=== PATIENT | female | born 1980 | race Caucasian/White ===

== ENCOUNTER 2021-11-16 09:47 | Outpatient (REF) | payer MEDICAID, SELFPAY ==
--- NOTE | 2021-11-16 09:30 | PAPFT_PTH ---
PATIENT: Tatyana Geronimo LOC: [facility] U#:[id number] AGE/SX: 41/F ROOM: RE11/16/[address]: ANABELA Reese : 1980 BED: DIS: 11/16/2021 SPEC #: [id number] RECD: 11/16/21 12:46 STATUS: ADRIENNE REStormy #: [id number] CLARY: 11/16/21 09:[address]: Azeb Dawson DEPT: [facility] Cytology RECD BY: Janeth Wilson ENTERED: 11/16/21 12:46 SP TYPE: PAPFT OTHR DR: Colette Hinkle MD, DC Tissues: 1 - CX/ENDOCX FOR PAP SMEARS Procedures: PAP THIN PREP/UVM Screening HPV DNA PROBE Comments: [id number]
== END 2021-11-16 09:48 | disposition home or self-care (01) ==
LOC: LBN 09:47
PROVIDERS: PCP Family Medicine; Visit Provider Nurse Practitioner Family
DX: Z12.4 Encounter for screening for malignant neoplasm of cervix (principal); Z11.51 Encounter for screening for human papillomavirus (HPV)
CPT/HCPCS: 88142; 87624

== ENCOUNTER → 2022-10-13 01:58 | Outpatient (CLI) | payer MEDICAID, SELFPAY ==
--- NOTE | 2022-10-13 07:30 | DI.US_ITS ---
Exam(s) US PELVIS TRANSVAGINAL EXAM: US PELVIS TRANSVAGINAL CLINICAL HISTORY: check IUD location,menorrhagia,z30.431,n92.0. TECHNIQUE: Transabdominal and transvaginal pelvic ultrasound was performed using standard protocol. COMPARISON: No priors for comparison. FINDINGS: UTERUS: Position: Anteverted. Size: 10.4 long by 5.4 AP by 6.0 transverse cm Endometrium: 0.7 cm. Normal for patient's menstrual status. No intrauterine device is identified. Myometrium: There is a 3.7 x 3.3 x 3.4 cm heterogeneous mass in the anterior for body and fundus. Th is is most likely a fibroid. Cervix: Unremarkable. OVARIES: Right: 4.3 x 3.7 x 2.4 cm Cyst or mass: No suspicious cystic or solid masses. Left: 3.4 x 2.3 x 2.5 cm Cyst or mass: No suspicious cystic or solid masses. DOPPLER: Color: Symmetric and uniform flow to both ovaries. CUL-DE-SAC: Free fluid: None. Other: None. IMPRESSION: 1. No IUD is identified sonographically. 2. Normal-appearing uterus with endometrial stripe within normal limits. Uterine fibroid. 3. Unremarkable bilateral ovaries. DATA REPOSITORY:
== END ==
PROVIDERS: PCP Family Medicine; Visit Provider Obstetrics & Gynecology
DX: N92.0 Excessive and frequent menstruation with regular cycle (principal); Z30.431 Encounter for routine checking of intrauterine contraceptive device; D25.9 Leiomyoma of uterus, unspecified
CPT/HCPCS: 76830; 76856

== ENCOUNTER 2023-02-08 16:22 | Outpatient (REF) | payer MEDICAID, SELFPAY ==
--- NOTE | 2023-02-08 15:45 | ENDOMET_PTH ---
PATIENT: Tatyana Geronimo LOC: [facility] U#:[id number] AGE/SX: 43/F ROOM: RE02/08/[address]: Dannielle Oneal DO : 1980 BED: DIS: 02/08/2023 SPEC #: [id number] RECD: 02/08/23 18:00 STATUS: ADRIENNE RE #: [id number] CLARY: 02/08/23 15:[address]: Dannielle Oneal DEPT: Surgical Specimen RECD BY: Janeth Wilson ENTERED: 02/08/23 18:01 SP TYPE: Endomet OTHR DR: Colette Hinkle MD, DC Tissues: 1 - ENDOMETRIUM BX/STEVEETTE Procedures: GROSS AND MICRO LEVEL 4 Comments: [id number]
== END 2023-02-08 16:23 | disposition home or self-care (01) ==
LOC: LBN 16:22
PROVIDERS: PCP Family Medicine; Visit Provider Obstetrics & Gynecology
DX: N93.8 Other specified abnormal uterine and vaginal bleeding (principal); N85.01 Benign endometrial hyperplasia
CPT/HCPCS: 88305

== ENCOUNTER 2023-04-29 02:21 | Outpatient (CLI) | payer MEDICAID, SELFPAY ==
[2023-04-29 14:48] LABS: HGB 14.1 g/dL (11.2-15.7); MCH 32.3 pg (27.0-33.0); MCHC 34.4 % (32.0-36.0); MCV 94 fL (80-95); MPV 9.6 fL (8.0-11.0); Platelet Count 251 10^3/uL (130-400); RBC 4.37 10^6/uL (3.93-5.22); RDW 11.9 % (11.7-14.6); RDW-SD 41.6 fL; WBC 6.63 10^3/uL (4.4-10.8)
[2023-04-29 15:55] LABS: Vitamin B12 345 pg/mL (193-986)
[2023-04-29 15:57] LABS: Folate > 20.0 ng/mL (8.6-20.0)
== END 2023-04-29 02:22 | disposition home or self-care (01) ==
LOC: LBO 02:21
PROVIDERS: Nurse Practitioner Family; PCP Family Medicine; Visit Provider Family Medicine
DX: R20.2 Paresthesia of skin (principal); R20.0 Anesthesia of skin
CPT/HCPCS: 36415; 85027; 82607; 82746

== ENCOUNTER 2023-05-20 00:40 | Outpatient (CLI) | payer MEDICAID, SELFPAY ==
--- NOTE | 2023-05-20 10:05 | DI.RAD_ITS ---
Exam(s) XR SHOULDER RT COMPLETE 2+V EXAM: XR SHOULDER RT COMPLETE 2+V CLINICAL HISTORY: thrown by bull 2019, SHOULDER PAIN, M25.519. TECHNIQUE: 2D digital imaging was performed. Five views. COMPARISON: No exams were available for comparison FINDINGS: BONES: No acute fracture is present in the shoulder visualized portions of the right ribs.. No bony destructive lesion is seen. JOINTS: No dislocation present. AC joint is not widened. Mild degenerative changes of the AC joint. Minimal degenerative changes at the glenohumeral joint. SOFT TISSUE: Normal. IMPRESSION: Mild degenerative changes. No acute abnormality. DATA REPOSITORY: RADIATION DOSE DELIVERED:
== END 2023-05-20 01:00 ==
LOC: DI 00:40
PROVIDERS: PCP Family Medicine; Visit Provider Family Medicine
DX: M25.511 Pain in right shoulder (principal)
CPT/HCPCS: 73030

== ENCOUNTER 2024-01-30 05:58 | Outpatient (CLI) | payer MEDICAID, SELFPAY ==
[2024-01-30 09:56] LABS: Abs Immature Grans 0.01 10^3/uL (0.0-0.06); Absolute Basophil Count 0.05 10^3/uL (0.0-0.2); Absolute Eosinophil Count 0.15 10^3/uL (0.0-0.7); Absolute Lymphocyte Count 2.04 10^3/uL (1.2-3.4); Absolute Monocyte Count 0.41 10^3/uL (0.1-0.8); Absolute Neutrophil Count 3.44 10^3/uL (1.2-6.7); Basophils % 0.8; Eosinophils % 2.5; HGB 15.2 g/dL (11.2-15.7); Immature Grans % 0.2; Lymphocytes % 33.4; MCH 31.9 pg (27.0-33.0); MCHC 33.8 % (32.0-36.0); MCV 95 fL (80-95); MPV 9.2 fL (8.0-11.0); Monocytes % 6.7; Neutrophils % 56.4; Platelet Count 287 10^3/uL (130-400); RBC 4.76 10^6/uL (3.93-5.22); RDW 11.8 % (11.7-14.6); RDW-SD 40.7 fL
== END 2024-01-30 05:59 | disposition home or self-care (01) ==
LOC: LBO 05:58
PROVIDERS: PCP Family Medicine; Visit Provider Obstetrics & Gynecology
DX: Z01.818 Encounter for other preprocedural examination (principal)
CPT/HCPCS: 36415; 86850; 86900; 86901; 85025

== ENCOUNTER 2024-02-01 06:20 | Inpatient (IN) | payer MEDICAID, SELFPAY ==
[2024-02-01] VITALS (18 sets, daily range): BP systolic 100–127; BP diastolic 52–76; PULSE 60–78; RESP 12–26; TEMP 36.5–36.8; O2SAT 96–100; BMI 29.7
--- NOTE | 2024-02-01 06:29 | W.ANESPRE ---
General Info Date of Service Date Performed: 02/01/24 Height: 5 ft 7.5 in Weight: 87.543 kg Body Mass Index (BMI): 29.7 Surgical Procedure: Operation Date: 02/01/24 07:40 Proposed Procedure Side Surgeon p Hysterectomy Vaginal Laparoscopic Assist, B/L Salpingectomy, possible BALDEMAR, Cysto Dannielle DO Jm Meds Allergies and Home Medications Allergies Allergy/AdvReac Type Severity Reaction Status Date / Time No Known Drug Allergies Allergy Other (See Verified 02/01/24 06:50 Comment) Home Medication Medication Instructions Recorded multivitamin (Daily Multi-Vitamin 1 ea PO DAILY 02/20/18 tablet) ascorbate calcium (vitamin C) 500 500 mg PO DAILY 11/16/21 mg tablet cholecalciferol (vitamin D3) 50 50 mcg PO DAILY 11/16/21 mcg (2,000 unit) capsule clotrimazole-betamethasone 1 1 applic topical BID 10 days #15 11/16/21 %-0.05 % topical cream grams lactobacillus combination no.9 4 PO 11/16/21 billion cell capsule (Adult 50 Plus Probiotic) omega-3 fatty acids 1,000 mg 1,000 mg PO DAILY 11/16/21 capsule norethindrone acetate 5 mg tablet 5 mg PO DAILY #60 tabs 07/15/23 (Aygestin) norethindrone acetate 5 mg tablet 10 mg (2 x 5 mg) PO BID #360 tabs 08/03/23 Current Visit Medications: Current Medications Generic Name Dose Route Start Last Admin Trade Name Freq PRN Reason Stop Dose Admin Ringer's Solution 1,000 mls @ 125 mls/hr 02/01/24 06:00 IV 02/01/24 23:59 INFUSION SHENA Cefazolin Sodium/Dextrose 2 gm in 50 mls @ 100 mls/hr 02/01/24 06:00 Ancef Duplex IVPB 02/01/24 23:59 PREOP SHENA IV Miscellaneous Supplies 1 each 02/01/24 06:00 Iv Access IV 02/01/24 23:59 DIRECTED SHENA Sodium Chloride 0 ml 02/01/24 06:00 Normal Saline Flush 10 Ml Syr IV 02/01/24 23:59 PRN PRN Sodium Chloride 0 ml 02/01/24 06:00 Normal Saline 10 Ml Vial IJ 02/01/24 23:59 DIRECTED PRN Sterile Water 0 ml 02/01/24 06:00 Water,Injection,Sterile 10 Ml Vial IJ 02/01/24 23:59 DIRECTED PRN PFSH Active Problems Active Problems: Problem Status Onset Code 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 Cubital tunnel syndrome on right G56.21 Cyst of bone of right shoulder M85.611 Contact dermatitis and eczema L25.9 Verruca vulgaris B07.8 Menorrhagia N92.0 Uterine fibroid D25.9 Paresthesia R20.2 Shoulder pain M25.519 Medical History Medical History IUD surveillance IUD expelled Tobacco Smoking/Tobacco Use Status: Former Tobacco Use Alcohol Alcohol Intake: current Alcohol intake frequency: holidays/special occasions only Substance Use Substance use type: does not use Vital Signs and Lab Results Lab Results Blood Type / Crossmatch: Patient ABO/Rh O Negative 01/30/24 Antibody Screen NEGATIVE 01/30/24 Complete Blood Count: White Blood Count 6.10 10^3/uL (4.4-10.8) 01/30/24 09:48 Red Blood Count 4.76 10^6/uL (3.93-5.22) 01/30/24 09:48 Hemoglobin 15.2 g/dL (11.2-15.7) 01/30/24 09:48 Hematocrit 45.0 % (36.0-46.0) 01/30/24 09:48 Platelet Count 287 10^3/uL (130-400) 01/30/24 09:48 Complete Metabolic Panel: No Data to Display Liver Function Panel: No Data to Display Coagulation Panel: No Data to Display Cardiac Panel: No Data to Display Arterial Blood Gas: No Data to Display Venous Blood Gas: No Data to Display Pancreas Panel: No Data to Display Thyroid Panel: No Data to Display Infectious Disease: No Data to Display Blood Cultures: No Data to Display Toxicology Panel: No Data to Display Panel: No Data to Display Anesthesia Assessment and Plan Anesthesia History Personal History: No History of Anesthesia Complications Family History: No Family History of Anesthesia Complications Exercise Tolerance Exercise Tolerance: Metabolic Equivalents>4 Pertinent Negatives Pertinent Negatives: No Symptoms of GERD, No Major Cardiovascular Symptoms or Complaints, No Major Pulmonary Symptoms or Complaints and No History of CVA/TIA Cardiac & Pulmonary Exam Cardiac Exam: Normal S1/S2 Heart Sounds Pulmonary Exam: Clear Bilateral Breath Sounds Implantable Cardiac Device Does patient have a Pacemaker or an ICD?: No Airway Exam Known Difficult Airway: No Mallampati Class: 2 Mouth Opening: Normal (> 3cm) Thyromental Distance: Greater than 3 cm Neck Range of Motion: Full ROM Neck Circumference: Normal Teeth Condition: Normal Dentition ASA Classification ASA Score: ASA 2 Emergency Case?: No NPO Status NPO Status: NPO Clears >2 hours, Solids >8 hours Status Status: Negative HCG Anesthesia Plan Resuscitation Status: Full Code Anesthesia Technique: General Anesthesia Airway Planned: Endotracheal Tube Pain Management: Intrathecal Analgesia Monitors Used: Standard Monitors Preoperative Comments:: 44 yo female with fibroids/menorrhagia for LAVH. Sig PMHx: former smoker, occ EtOH.
[2024-02-01] MEDS: Lactated Ringers 1,000 ML 125 ML IV ×2 (06:48→12:47)
[2024-02-01] MEDS: ceFAZolin 2 GM/50 ML BAG IVPB (07:41)
--- NOTE | 2024-02-01 09:00 | UTER_PTH ---
PATIENT: Tatyana Geronimo LOC: [facility] U#:[id number] AGE/SX: 44/F ROOM: OBS.306 RE02/01/[address]: Dannielle Oneal DO : 1980 BED: A DIS: 02/02/2024 SPEC #: [id number] RECD: 02/01/24 13:02 STATUS: ADRIENNE REQ #: [id number] CLARY: 02/01/24 09:[address]: Dannielle Oneal DEPT: Surgical Specimen RECD BY: Janeth Wilson ENTERED: 02/01/24 13:03 SP TYPE: UTER OTHR DR: Colette Hinkle MD, DC Tissues: 1 - UTERUS W OR W/O OVARIES(NOT TUMOR/PROLAPSE) Procedures: GROSS AND MICRO LEVEL 5 Comments: [id number]
[2024-02-01] MEDS: Bupivacaine 0.5% Pres-Free 30 ML VIAL (10:11)
--- NOTE | 2024-02-01 10:36 | ROE_ITS ---
Date of service: 02/01/24 Time of Service: 10:37 Operative Note Operative Note DATE OF PROCEDURE: 02/01/24 PRE-OP DIAGNOSIS: Symptomatic uterine fibroids POST-OP DIAGNOSIS: same PROCEDURE: Laparoscopically assisted vaginal hysterectomy with bilateral salpingectomy, cystoscopy SURGEON: Dannielle Oneal ASSISTING SURGEON: Maura Garcia ANESTHESIA TYPE: Local By Surgeon, General LMA/ETT and Spinal Refer to Anesthesia Record ESTIMATED BLOOD LOSS: 350 PATHOLOGY: other (Bilateral fallopian tubes, uterus, cervix for examination) COMPLICATIONS: None Patient's condition: stable Indications: Ongoing heavy menstrual bleeding, symptomatic uterine fibroids, pelvic discomfort. Findings: 14 weeks size, bulky, globular uterus. Normal-appearing ovaries bilateral. Normal-appearing fallopian tubes bilaterally. Tortuous and dilated uterine vessels. No evidence of intra-abdominal or pelvic trauma. Normal bladder cystoscopy with appropriately jetting ureteric orifice ease. Procedure Description: After full informed consent was obtained, patient was taken the operating suite with an IV running. She was placed in the seated position for administration of spinal anesthesia per anesthesia. She was then placed in the supine position and endotracheal intubation performed for the administration of general anesthesia with ease. At this point she was then placed in the modified dorsolithotomy position. She had pneumatic compression stockings for DVT pro phylaxis, Ancef, 2 g for surgical site infection prophylaxis. Exam under anesthesia was performed confirming a bulky globular approximately 14 weeks size mobile uterus. At this point Poole catheter was inserted for continuous bladder drainage. Speculum inserted into the vaginal vault and the cervical os identified. A single-tooth tenaculum was used to grasp the anterior lip of the cervix and cervix dilated with a sound. Uterus sounded to 10 cm. ZUMI uterine manipulator was placed within an tenaculum and speculum removed. Attention was then turned to the abdomen where quarter percent Marcaine was used to infiltrate the umbilical area. A vertical incision was made at the lower edge of the umbilicus. The anterior abdominal wall was elevated with sharp towel clips. A Veress needle was used to insert to create a pneumoperitoneum. Pressures were exceeding my expectation and Veress needle was then removed. The fascia was then grasped with a [place] clamp and incised. Under direct v isualization a 12 mm trocar was placed into the abdomen for creation of pneumoperitoneum. CO2 gas was used to a maximum pressure of 15 mmHg to create a pneumoperitoneum for operating space. At this point the abdomen and pelvis were inspected. There was no evidence of trauma to the abdominal contents, or pelvic contents. At this point a second and third right and left lower quadrant trocar site were placed under direct visualization after infiltration of quarter percent Marcaine. The uterus was then elevated out of the pelvis. It was to be noted as described approximately 14 weeks size, bulky, globular, with uterine fibroids present. Vascular to the to the uterus and fibroids were significant. Fallopian tubes were identified bilaterally. Attention was first turned to the left fallopian tube which was elevated and cautery transected. The fallopian tube was then removed through the surgical port. Similar procedure was carried on the right fallopian tube and the foot right fallopian tube was removed. The uterus was then elevated and the left round ligament was identified cautery transected and ligated. This allowed access to the broad ligament. The torturous utero-ovarian vessels were also clamped and cautery transected. The anterior leaf of the broad ligament was elevated and the bladder flap created to the midline of the uterus. At this point attention was turned to the right side of the uterus and vasculature. The right round ligament was identified cautery transected and ligated and the right utero-ovarian ligament was cautery transected and ligated. At this point the right broad ligament again was split and the anterior leaf was incised to complete the bladder flap. At this point the right uterine vessels were clamped cautery transected and ligated. Attention was returned to the left uterine vessels which were cauterized meticulously. At this point, with all pedicles hemostatic decision was made to transition to the vaginal portion of the procedure. Pneumoperitoneum was released. At this point attention was turned to the vaginal vault where a weighted speculum was placed in the posterior vagina and the cervix identified. The anterior and posterior lip of the cervix were grasped with Radha clamps and in a circumferential fashion with cautery the cervical vaginal interface was incised. The posterior cul-de-sac was entered sharply and a weighted speculum placed there in. The left uterosacral cardinal complex was grasped, suture-ligated and transected. Similar procedure was carried out on the right uterosacral cardinal complex. At this point attention was turned to the anterior cul-de-sac with meticulous sharp dissection was entered. The remainder of the uterine pedicle pedicles first on the left, followed by the right were clamped transected and suture-ligated. This allowed for delivery of the bulky, globular, edematous uterus to be delivered through the vaginal vault. At this point the uterine pedicles were identified, and noted to be hemostatic. The vaginal cuff was closed using 0 Vicryl suture in a running locked fashion. As of note with manipulation of the tissue, tissue had significant edema. With closure of the vaginal cuff, attention was returned to the abdomen. Pneumoperitoneum was again recreated. Abdomen and pelvis inspected. Pelvic contents were irrigated with copious amounts of normal saline. All pedicles were inspected. There was an area that was not hemostatic at the left aspect of the vaginal cuff which was clamped with Weck clip. This allowed for hemostasis. Again the abdomen was irrigated with copious amounts of normal saline all pedicles, and vaginal cuff inspected and noted to be hemostatic both under maximum pressure of 15 mmHg and at low pressure of 5 mm. At this point, procedure as far as the history is active and goes was terminated. Patient received indigocarmine intravascularly for aid with cystoscopy. Fascial incision from the hysterectomy was closed using 0 Vicryl suture in a [id number] fashion. Skin edge was reapproximated with 4-0 undyed Monocryl Steri-Strips and a sterile dressing were placed. At this point cystoscopy was performed with a 30 degree scope, the bladder was instilled with normal saline. There was no evidence of trauma to the bladder, no sutures noted within the bladder and both ureteric orifice ease were noted to be jetting brightly blue dyed urine. With assurance that the bladder and ureters are intact and functioning normally, procedure was terminated. Poole catheter was then reinserted and the patient returned to the dorsal supine position. She woke from anesthesia without difficulty. She was taken to the recovery room in stable condition with a Poole catheter draining blue-tinged urine. EBL: 350 cc Complications: None apparent Fluids: Crystalloid per anesthesia Pathology: Bilateral fallopian tubes, uterus, cervix for examination.
--- NOTE | 2024-02-01 11:09 | W.ANESPOSTOP ---
Postoperative Evaluation Date, Time and Location Date Performed: 02/01/24 Time Performed: 11:09 Patient Location: PACU Vital Signs Most Recent Imported Vital Signs: Most Recent Vital Signs Temp Pulse Resp BP Pulse Ox 36.5 C 75 20 115/62 96 02/01/24 10:55 02/01/24 10:55 02/01/24 10:55 02/01/24 10:55 02/01/24 10:55 Pain Score Most Recent Pain Score: Most Recent Pain Score Pain Level 0 02/01/24 06:36 Assessment Mental Status: Awake (Alert & Oriented to Patient Baseline) Airway and Respiratory Function: Patent airway with normal (patient baseline) respiratory exam Cardiovascular Function: Hemodynamically Stable Hydration Status: Adequately Hydrated Nausea & Vomiting: No Nausea or Vomiting Pain: Pt. Denies Any Pain Peripheral Nerve Block: Patient did not receive a nerve block
[2024-02-01] MEDS: Ketorolac 30 MG/ML VIAL 15 MG IVP ×2 (15:59→22:03)
--- NOTE | 2024-02-01 16:41 | PGE_ITS ---
Date of Service Date of service: 02/01/24 Time of Service: 16:41 Assessment and Plan Assessment and plan (1) Status post laparoscopic assisted vaginal hysterectomy: Status: Acute Assessment and plan: Status post LAVH with bilateral salpingectomy. Doing well. Increase activity. Maintain Poole catheter until the morning. CBC in the morning. Diet as tolerated. Anticipate discharge home on 02/02/2024 if stable. Subjective Subjective Interval history since last seen: Patient seen and examined postop day 0 doing well. Vital signs are stable. Urine output is appropriate. Results of her surgery, and procedure explained at length. She is doing well. She tolerated lunch without difficulty. She has been up to a chair and she will increase her activity today. Will do CBC in the morning and discontinue her Poole catheter in the morning, once we have ascertain hemodynamic stability. All questions were answered. Objective Last Vital Signs Temp 97.8 F 02/01/24 16:11 Pulse 70 02/01/24 16:11 Resp 18 02/01/24 16:11 BP 107/62 02/01/24 16:11 Pulse Ox 99 02/01/24 16:11 Time Spent with Patient Time Spent with Patient: 25-34 minutes Time was spent: preparing to see the patient(eg.review tests), obtaining and/or reviewing separately otained hiistory, ordering medications,tests, procedures, referring, communicating with other health critical care specialist and indepentently interpreting results
[2024-02-01] MEDS: Docusate Sodium 100 MG CAP PO (22:03)
[2024-02-02 04:07] VITALS: BP 96/49; PULSE 63; RESP 17; TEMP 36.8; O2SAT 96
[2024-02-02] MEDS: Ketorolac 30 MG/ML VIAL 15 MG IVP (04:08)
[2024-02-02] MEDS: Acetaminophen 500 MG TAB PO ×2 (06:22→10:25)
[2024-02-02 06:52] LABS: HGB 12.2 g/dL (11.2-15.7); MCH 32.1 pg (27.0-33.0); MCHC 33.9 % (32.0-36.0); MCV 95 fL (80-95); MPV 9.9 fL (8.0-11.0); Platelet Count 227 10^3/uL (130-400); RDW 11.9 % (11.7-14.6); RDW-SD 41.3 fL; WBC 12.07 10^3/uL (4.4-10.8)
[2024-02-02 07:45] VITALS: BP 120/57; PULSE 76; RESP 12; TEMP 36.8; O2SAT 97
--- NOTE | 2024-02-02 07:54 | PGE_ITS ---
Date of Service Date of service: 02/02/24 Time of Service: 07:54 Assessment and Plan Assessment and plan (1) Status post laparoscopic assisted vaginal hysterectomy: Status: Acute Assessment and plan: Postop day 1 status post laparoscopically assisted vaginal hysterectomy with bilateral salpingectomy. Doing well. Vital signs are stable. Hemoglobin is stable. Ambulating, tolerating regular diet and oral pain medication with stable vital signs. Discharge home today. Precautions given. Follow-up in 2 and 6 weeks. Prescription sent to the pharmacy. Subjective Subjective Interval history since last seen: Patient seen and examined this morning. Doing well. Pain is well-controlled. Hemoglobin stable at 12.2. Vital signs are stable. Ambulating, tolerating regular diet, voiding without difficulty. Would like discharge today. Instructions given. Precautions given Exam Const General: cooperative, healthy appearing, comfortable, no acute distress, well developed and well groomed HENMT Head: normal to inspection Eyes General: appearance normal, both eyes and all related structures Neck Neck: normal visual inspection, supple, no anterior neck swelling and nontender Resp Effort & Inspection: normal respiratory effort, no audible wheezes and no cough Cardio Rate: regular rate Rhythm: regular rhythm GI Inspection: normal to inspection, non-distended and incision (Dressed) Skin General skin exam: no rashes or lesions noted Extrem General: normal to inspection, no clubbing, cyanosis or edema and no calf tenderness bilaterally Psych Appearance: grossly normal Mental Status: mental status grossly normal Speech and Movement: speech and movement normal Mood: congruent mood Insight: insight good Judgment: judgment good Objective Last Vital Signs Temp 98.2 F 02/02/24 04:07 Pulse 63 02/02/24 04:07 Resp 17 02/02/24 04:07 BP 96/49 L 02/02/24 04:07 Pulse Ox 96 02/02/24 04:07 Laboratory Results - last 24 hr 02/02/24 06:04 WBC 12.07 H RBC 3.80 L Hgb 12.2 D Hct 36.0 MCV 95 MCH 32.1 MCHC 33.9 RDW 11.9 Plt Count 227 MPV 9.9 Time Spent with Patient Time Spent with Patient: 25-34 minutes Time was spent: preparing to see the patient(eg.review tests), obtaining and/or reviewing separately otained hiistory, ordering medications,tests, procedures, referring, communicating with other health health care facilities inspector, indepentently interpreting results and counseling the patient
--- NOTE | 2024-02-02 08:01 | DSE_ITS ---
Date of service: 02/02/24 Time of Service: 08:01 DS: Diagnosis Discharge Diagnosis (1) Status post laparoscopic assisted vaginal hysterectomy: Status: Acute Asessment and Plan: Patient is postoperative day #1 status post laparoscopically assisted vaginal hysterectomy with bilateral salpingectomy. Doing well. Discharge home today. Follow-up in the office in 2 and 6 weeks. Pelvic rest, and no heavy lifting for total of 6 weeks. Prescriptions were sent to the pharmacy. Pathology is pending Discharge Plan Disposition Patient Disposition: Home Condition: Improving Discharge Details Reason For Visit: [facility] Admit Date/Time: 02/01/24 06:20 Admit Provider: Dannielle Oneal Attending Provider: Dannielle Oneal Primary Care Provider: Colette Hinkle Hospital Course Hospital Course: Patient was admitted on 02/01/2024 for laparoscopically assisted vaginal hysterectomy with bilateral salpingectomy due to symptomatic uterine fibroids and ongoing abnormal uterine bleeding. Her surgery was uncomplicated. She did have a significantly enlarged bulky fibroid uterus with significant vascularity. She had approximately 350 cc blood loss intraoperatively and a stable hemoglobin postoperatively. She was discharged home postoperative day #1 ambulating, tolerating regular diet and oral pain medication with stable vital signs. Follow-up with me in the office in 2 and 6 weeks. Prescription sent to the pharmacy. Pathology is pending Home Meds and New Rx's Prescriptions: New ibuprofen 800 mg tablet 800 mg PO Q8H PRNQty: 60 1RF docusate sodium [Colace] 100 mg capsule 100 mg PO BID Qty: 30 1RF oxycodone-acetaminophen [Percocet] 5-325 mg tablet 1 tab PO Q8H PRNQty: 7 0RF Continued ascorbate calcium (vitamin C) 500 mg tablet 500 mg PO DAILY cholecalciferol (vitamin D3) 50 mcg (2,000 unit) capsule 50 mcg PO DAILY omega-3 fatty acids 1,000 mg capsule 1,000 mg PO DAILY Adult 50 Plus Probiotic 4 billion cell capsule PO clotrimazole-betamethasone 1-0.05 % cream 1 applic topical BID 10 Days Qty: 15 2RF multivitamin [Daily Multi-Vitamin] 1 EACH tablet 1 ea PO DAILY Discontinued norethindrone acetate [Aygestin] 5 mg tablet 5 mg PO DAILY Qty: 60 5RF Patient Comments: 02/01/24 pt reports she is not taking this prescription in lieu of 10mg prescription. norethindrone acetate 5 mg tablet 10 mg PO BID Qty: 360 2RF Discharge Instructions Additional Instructions: Follow-up with Dr. Oneal in 2 and 6 weeks Stand Alone Forms: [employer] Checker SurgeryW/Incision Activity:: Pelvic rest, no heavy lif Equipment/Supplies:: No Equipment Needed Diet:: As Tolerated Discharge Orders Discharge Orders: Discharge Order (Routine); Ordered 02/02/24 Ordered By: Dannielle Oneal DS: Summary Time Spent with Patient providing and/or coordinating discharge services: Greater than 30 minutes Status at Discharge Functional status at discharge: independent ambulation Overall status at discharge: patient is progressing back to baseline Mental Status: mental status grossly normal Speech and Movement: speech and movement normal Mood: congruent mood Affect: normal affect Quality:SDOH Health Related Social Needs: No Data to Display Exam Narrative Exam Narrative: See physical exam from progress note dated 02/02/2024 Psych Mental Status: mental status grossly normal Speech and Movement: speech and movement normal Mood: congruent mood Affect: normal affect DS: Data Vitals/I&O Vitals and I&O: Vital Signs Temperature 98.2 F 02/02/24 04:07 Temperature Source Oral 02/02/24 04:07 Pulse 63 02/02/24 04:07 Pulse Rhythm Regular 02/01/24 20:40 Respiratory Rate 17 02/02/24 04:07 Respiratory Effort Non-Labored 02/01/24 20:40 Respiratory Depth Normal 02/01/24 20:40 Respiratory Pattern Normal 02/01/24 20:40 Blood Pressure 96/49 L 02/02/24 04:07 Pulse Oximetry 96 02/02/24 04:07 Respiratory End-tidal CO2 40 02/01/24 11:10 Oxygen Delivery Method Room Air 02/02/24 04:07 Oxygen Flow Rate 0 02/02/24 04:07 Pain Level 0 02/01/24 17:30 Comment VS documented in admission assessment. 02/01/24 12:09 Intake & Output 02/01/24 02/01/24 02/02/24 11:59 23:59 11:59 Intake Total 800 / 2826.534 5158.333 / 1903.333 Output Total 550 / 1550 1000 / 1550 700 / 700 Balance 250 / 353.333 103.333 / 353.333 -700 / -700 Weight 196 lb 3.382 oz 193 lb Intake: IV 800 / 983.333 183.333 / 983.333 Oral 0 / 920 920 / 920 Output: Urine 200 / 1200 1000 / 1200 700 / 700 Estimated Blood Loss 350 / 350 Other: Urine Color Indigo Yellow Yellow Urine Appearance Clear Clear Clear Urine Odor None Emesis Description None Voiding Methods Toilet Indwelling Catheter Data Completed and Pending Labs on day of discharge: Labs from last 24 hours 02/02/24 06:04 WBC 12.07 H RBC 3.80 L Hgb 12.2 D Hct 36.0 MCV 95 MCH 32.1 MCHC 33.9 RDW 11.9 Plt Count 227 MPV 9.9 PFSH All Active Problems (Updated 02/02/24 @ 07:56 by Dannielle Oneal DO) Status post laparoscopic assisted vaginal hysterectomy (Acute) Since status post LAVH with bilateral salpingectomy 02/01/2024 Arthritis of right acromioclavicular joint (Acute) Cubital tunnel syndrome on right (Acute) Cyst of bone of right shoulder (Acute) Contact dermatitis and eczema (Acute) Verruca vulgaris (Acute) Paresthesia (Acute) Shoulder pain (Acute) Medical History IUD surveillance IUD expelled Family History Mother Well adult Father Well adult Social History Smoking/Tobacco Use Status: Former Tobacco Use Quit Date: 10/17/99 Smoking risk assessment performed?: Yes Alcohol Intake: current Alcohol Intake frequency: holidays/special occasions only Alcohol type: wine Drug use: Never Substance use type: does not use Household members: spouse Housing: house current occupation: [employer] Pets and animals: Yes Pets and animals: cat(s) and dog(s) Current gender identity: female What type of physical activity do you participate in: none Jackie/Confucianism: Zoroastrianism Seatbelt use: always Helmet use: Yes Helmet use: always Drive intox or ride w/intox truck driver supervisor: No Water heater temp set <120 deg: No Working smoke detector in home: Yes Fire extinguisher in home: Yes Carbon monox detector in home: Yes Firearms in home: Yes Firearms unloaded and locked: Yes Time Spent with Patient Time Spent with Patient: <45 minutes Time was spent: preparing to see the patient(eg.review tests), obtaining and/or reviewing separately otained hiistory, ordering medications,tests, procedures, referring, communicating with other health child care associate teacher, indepentently interpreting results and counseling the patient
[2024-02-02] MEDS: Ibuprofen 600 MG TAB PO (10:24)
[2024-02-02] MEDS: Docusate Sodium 100 MG CAP PO (10:24)
== END 2024-02-02 12:55 | disposition home or self-care (01) | DRG 743 ==
LOC: PDS 06:21 → OBS 13:55
PROVIDERS: Admitting Provider Obstetrics & Gynecology; PCP Family Medicine; Visit Provider Obstetrics & Gynecology
PROC: 0UT9FZZ Resection of Uterus, Via Natural or Artificial Opening With Percutaneous Endoscopic Assistance (ICD-10-PCS; CPT 58554; principal; 2024-02-01 07:30)
DX: D25.9 Leiomyoma of uterus, unspecified (principal); N92.0 Excessive and frequent menstruation with regular cycle; Z79.899 Other long term (current) drug therapy; M19.011 Primary osteoarthritis, right shoulder; L25.9 Unspecified contact dermatitis, unspecified cause; N83.8 Other noninflammatory disorders of ovary, fallopian tube and broad ligament
CPT/HCPCS: 58554; 36415; 81025; 85027; 88307; J0131; J0665; J0690; J1100; J1885; J2001; J2250; J2274; J2405; J2704; J3010; J3475

== ENCOUNTER 2024-10-24 03:28 | Outpatient (CLI) | payer MEDICAID, SELFPAY ==
--- NOTE | 2024-10-24 08:45 | DI.MAMMO_ITS ---
Exam(s) MAMMO SCREENING EXAM: MAMMO SCREENING CLINICAL HISTORY: screening TECHNIQUE: Bilateral full field digital CC and MLO mammographic images were obtained with 3D tomosyn thesis and utilizing computer aided detection (CAD). COMPARISON: This is a baseline examination. FINDINGS: Masses/Architectural Distortion: There is a 2 cm well-circumscribed ovoid density in the superior ret roareolar region of the left breast on the MLO view. It appears to lie in the medial soft tissues on the craniocaudad view. There are no areas of architectural distortion. Microcalcifications: No suspicious pleomorphic-type are seen. Skin Thickening/Nipple Retraction: None. IMPRESSION: 1. 2 cm well-circumscribed ovoid density in the left retroareolar region. 2. Spot compression views requested for further evaluation. Targeted left breast ultrasound should b e obtained at that time. BI-RADS Category 0 - Incomplete: Need additional imaging evaluation Breast Density - Category C - Heterogeneously dense Breast density category C or D implies that the patient has dense breast tissue. Dense breast tissue is very common and is not abnormal but dense breast tissue can make it harder to find cancer on a ma mmogram. Also, dense breast tissue may increase their breast cancer risk. This information about the result of the mammogram report was provided to the patient to raise their awareness. Use this report when you speak with the patient about their risks for breast cancer, which includes their family hist ory. At that time, you may recommend for more screening tests (Ultrasound or MRI) as they might be us eful based on their risk. A negative radiographic report should not delay biopsy if a dominant or clinically suspicious mass is present. Up to ten percent of cancers are not identified on mammography. A negative report may reinforce clinical impression. Adenosis and dense breasts may obscure an underlying neoplasm. False positive reports average 6 to 10%. Patient will receive a letter notifying them of these results.
== END 2024-10-24 03:48 ==
LOC: DI 03:28
PROVIDERS: PCP Family Medicine; Visit Provider Obstetrics & Gynecology Gynecology
DX: Z12.31 Encounter for screening mammogram for malignant neoplasm of breast (principal); R92.333 Mammographic heterogeneous density, bilateral breasts
CPT/HCPCS: 77063; 77067

== ENCOUNTER 2024-11-02 00:21 | Outpatient (CLI) | payer MEDICAID, SELFPAY ==
--- NOTE | 2024-11-02 | DI.US_ITS ---
Exam(s) MG MAMMO SCREEN CALL BACK UNI US BREAST LT LIMITED EXAM: MG MAMMO SCREEN CALL BACK UNI CLINICAL HISTORY: 2 cm well-circumscribed ovoid density in superior retroareolar region, lt. TECHNIQUE: Craniocaudal and mediolateral oblique spot compression digital Mammography views of the l eftbreast with Tomosynthesis and left breast ultrasound. COMPARISON: MG MG MAMMO SCREENING from 10/24/2024 US US BREAST LT LIMITED from 11/02/2024 FINDINGS: Mammography/Tomosynthesis: Masses: Circumscribed ovoid nodule in the subareolar upper outer quadrant measuring 2.1 by 3.1 x 1.7 cm. Architectural Distortion: None seen. Microcalcifictions: No suspicious pleomorphic-type are seen. Skin Thickening/Nipple Retraction: None. Left breast US: Echotexture: Normal appearance of the glandular tissue. Shadowing: No suspicious foci. Cyst: None. Solid lesions: Ovoid circumscribed hypoechoic lesion in the 9 o'clock position 2 cm from the nipple m easuring 1.8 x 0.6 x 2.5 cm. Increased through transmission. No internal blood flow. Findings cons istent with a fibroadenoma. Ductal dilation: None. IMPRESSION: 1. No evidence of malignancy is noted. Left breast nodule is consistent with a fibroadenoma. 2. Six month follow-up recommended.. 3. The findings were discussed with the patient on the date of the examination. BI-RADS Category 3 - 6 month - Probably Benign Finding: Recommend follow-up mammography in 6 months Breast Density - Category C - Heterogeneously dense A mammogram that demonstrates density of C or D indicates the patient's breast tissue is dense. Dense breast tissue is very common and is not abnormal, but dense breast tissue can make it harder to find cancer on a mammogram. Also, dense breast tissue may increase their breast cancer risk. This informa tion about the result of the mammogram report was provided to the patient to raise their awareness. U se this report when you speak with the patient about their risks for breast cancer, which includes th eir family history. At that time, you may recommend for more screening tests (Ultrasound or MRI) as t hey might be useful based on their risk. A negative radiographic report should not delay biopsy if a dominant or clinically suspicious mass is present. Up to ten percent of cancers are not identified on mammography. A negative report may reinforce clinical impression. Adenosis and dense breasts may obscure an underlying neoplasm. False positive reports average 6 to 10%. Patient will receive a letter notifying them of these results.
== END 2024-11-02 00:41 ==
LOC: DI 00:21
PROVIDERS: PCP Family Medicine; Visit Provider Obstetrics & Gynecology Gynecology
DX: Z12.31 Encounter for screening mammogram for malignant neoplasm of breast (principal); N63.23 Unspecified lump in the left breast, lower outer quadrant
CPT/HCPCS: 76642; 77063; 77067

== ENCOUNTER 2025-03-17 08:55 | Emergency (ER) | payer MEDICAID, SELFPAY ==
[2025-03-17 08:59] VITALS: BP 119/57; PULSE 77; RESP 16; TEMP 36.5; O2SAT 100
[2025-03-17 09:04] VITALS: BP 119/57; PULSE 77; RESP 16; TEMP 36.5; O2SAT 100
--- NOTE | 2025-03-17 09:15 | ED.GENADUL_ITS ---
Discharge Plan Disposition Patient Disposition: Home Discharge Details Clinical Impression: Ear infection Primary Care Provider: Indio Rader ED Provider: Jose Miguel Omer Home Meds and New Rx's Prescriptions: New ofloxacin 0.3 % drops 10 drp otic (ear) DAILY 7 Days Qty: 5 0RF No Action ascorbate calcium (vitamin C) 500 mg tablet 500 mg PO DAILY cholecalciferol (vitamin D3) 50 mcg (2,000 unit) capsule 50 mcg PO DAILY omega-3 fatty acids 1,000 mg capsule 1,000 mg PO DAILY Adult 50 Plus Probiotic 4 billion cell capsule 4,000 mmu cells PO DAILY clotrimazole-betamethasone 1-0.05 % cream 1 applic topical BID 10 Days Qty: 15 2RF amoxicillin-pot clavulanate 875-125 mg tablet 1 tab PO Q12H Qty: 14 0RF Patient Comments: started 4 days ago Rx Instructions: Take 1 tablet twice a day for 7 days multivitamin [Daily Multi-Vitamin] 1 EACH tablet 1 ea PO DAILY ibuprofen 800 mg tablet 800 mg PO Q8H PRNQty: 60 1RF Discharge Instructions Instructions: Ear Infection ED Additional Instructions: Continue oral antibiotic as prescribed. Continue Flonase and start Mucinex [id number] to help with ear fullness. Drops have been prescribed as well. Please follow-up with your PCP if symptoms are not improving HPI General Date/Time Provider Initiated Documentation: 03/17/25 09:03 . Limitations to Documentation: no limitations . Information obtained by: patient . HPI Narrative: 45-year-old female without significant past medical history presents for evaluation of right ear pain. She reports a history of recurrent infections throughout her lifetime. She states that she has been having ear pain and fullness for about 2 weeks after a viral URI infection. She was evaluated in urgent care and started on antibiotics which she has been taking for the last 4 days. The patient reports no improvement in her symptoms and continued pressure. She has also been taking Flonase. She reports that she usually has to take drops in addition to the oral antibiotics to relieve her ear symptoms. She denies any fever or drainage from her ears. Related Data Home Medications ?Medication ?Instructions ?Recorded ?Confirmed multivitamin (Daily Multi-Vitamin 1 ea PO DAILY 02/20/18 03/17/25 tablet) ascorbate calcium (vitamin C) 500 500 mg PO DAILY 11/16/21 03/17/25 mg tablet cholecalciferol (vitamin D3) 50 50 mcg PO DAILY 11/16/21 03/17/25 mcg (2,000 unit) capsule clotrimazole-betamethasone 1 1 applic topical BID 10 days #15 11/16/21 03/17/25 %-0.05 % topical cream grams lactobacillus combination no.9 4 4,000 mmu cells PO DAILY 11/16/21 03/17/25 billion cell capsule (Adult 50 Plus Probiotic) omega-3 fatty acids 1,000 mg 1,000 mg PO DAILY 11/16/21 03/17/25 capsule ibuprofen 800 mg tablet 800 mg PO Q8H PRN #60 tabs 02/02/24 03/17/25 amoxicillin 875 mg-potassium 1 tab PO Q12H #14 tabs 03/13/25 03/17/25 clavulanate 125 mg tablet ofloxacin 0.3 % ear drops 10 drp otic (ear) DAILY 7 days #5 03/17/25 mL Previous Rx's ?Medication ?Instructions ?Recorded clotrimazole-betamethasone 1 1 applic topical BID 10 days #15 11/16/21 %-0.05 % topical cream grams ibuprofen 800 mg tablet 800 mg PO Q8H PRN #60 tabs 02/02/24 amoxicillin 875 mg-potassium 1 tab PO Q12H #14 tabs 03/13/25 clavulanate 125 mg tablet ofloxacin 0.3 % ear drops 10 drp otic (ear) DAILY 7 days #5 03/17/25 mL Allergies Allergy/AdvReac Type Severity Reaction Status Date / Time No Known Drug Allergies Allergy Other (See Verified 03/17/25 08:57 Comment) General Stated Complaint: EarProblem ELISSA: 4 Exam Narrative Exam Narrative: Review of Systems: All systems reviewed & are unremarkable except as noted in HPI and below Well-developed, no acute distress Afebrile NCAT PERRL, normal conjunctiva no significant nasal mucosal edema Oropharynx without tonsillar enlargement erythema or exudate Left ear canal with some debris, but no tenderness, TM unremarkable right TM with scarring, purulent effusion Course Vital Signs Vital signs: Vital Signs Temperature 36.5 C 03/17/25 08:59 Pulse 77 03/17/25 08:59 Respiratory Rate 16 03/17/25 08:59 Blood Pressure 119/57 L 03/17/25 08:59 Pulse Oximetry 100 03/17/25 08:59 Temperature 36.5 C 03/17/25 09:04 Temperature Source Tympanic 03/17/25 09:04 Pulse 77 03/17/25 09:04 Respiratory Rate 16 03/17/25 09:04 Blood Pressure 119/57 L 03/17/25 09:04 Blood Pressure Position Sitting 03/17/25 09:04 Pulse Oximetry 100 03/17/25 09:04 Oxygen Delivery Method Room Air 03/17/25 09:04 Oxygen Flow Rate 0 03/17/25 09:04 Pain Level 8 03/17/25 09:05 Medical Decision Making Emergent evaluation of right ear pain. Initial differential includes viral illness, otitis media, otitis externa. There is no evidence of tympanic membrane rupture at this time. Patient is afebrile, I do not have concern for mastoiditis. She is on day 4 of antibiotic regimen. At this time she is requesting topical antibiotic as well as this has helped in the past. Prescription for ofloxacin has been sent to the pharmacy. Recommend follow-up with PCP or ENT if her symptoms are not improving. Quality:SDOH Health Related Social Needs: No Data to Display PFSH All Active Problems (Updated 03/17/25 @ 09:11 by Jose Miguel Omer MD) Ear infection (Acute) History of recurrent ear infection (Acute) Breast nodule (Acute) L breast, noted on preliminary screening mammogram. C/W fibroadenoma. Status post laparoscopic assisted vaginal hysterectomy (Acute) Since status post LAVH with bilateral salpingectomy 02/01/2024 Arthritis of right acromioclavicular joint (Acute) Cubital tunnel syndrome on right (Acute) Cyst of bone of right shoulder (Acute) Contact dermatitis and eczema (Acute) Verruca vulgaris (Acute) Paresthesia (Acute) Shoulder pain (Acute) Medical History IUD surveillance IUD expelled Family History Mother Well adult Father Well adult Social History Smoking/Tobacco Use Status: Former Tobacco Use Quit Date: 10/17/99 Tobacco: How many years used: 5 Smoking risk assessment performed?: Yes Alcohol Intake: current Alcohol Intake frequency: holidays/special occasions only Alcohol type: wine Drug use: Never Substance use type: does not use Household members: spouse and other Details: H- Travis Housing: house Number of Children: 5 current occupation: [employer] Pets and animals: Yes Pets and animals: cat(s) and dog(s) Current gender identity: female What type of physical activity do you participate in: none Jackie/Advent: Jainism Seatbelt use: always Helmet use: Yes Helmet use: always Drive intox or ride w/intox 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
== END 2025-03-17 09:16 | disposition home or self-care (01) ==
PROVIDERS: Emergency Provider Emergency Medicine; PCP Nurse Practitioner Family
DX: H66.91 Otitis media, unspecified, right ear (principal)
CPT/HCPCS: 99283 ×2

== ENCOUNTER 2025-05-02 00:10 | Outpatient (CLI) | payer MEDICAID, SELFPAY ==
--- NOTE | 2025-05-02 10:00 | DI.US_ITS ---
Exam(s) US BREAST LT COMPLETE MG MAMMO DIAGNOSTIC UNI EXAM: MAMMO DIAGNOSTIC UNI and U/S breast LT complete CLINICAL HISTORY: F/U L breast fibroadenoma,BREAST NODULE, N63.0,6 MO F/U. TECHNIQUE: Craniocaudal and mediolateral oblique Full Field Digital Mammography views of the left breast with Computer Aided Diagnosis followed by Tomosynthesis and complete left breast ultrasound. All 4 quadrants of the left breast were evaluated sonographically in addition to the left axilla and retroareolar regions. COMPARISON: Comparison is made with prior examinations. FINDINGS: Mammography/Tomosynthesis: Masses/Architectural Distortion: The well-circumscribed nodule in the upper inner quadrant of the left breast appears stable. Using similar measuring techniques the lesion measures 2.6 x 1.9 cm. No other suspicious masses or areas of architectural distortion are present. Microcalcifictions: No suspicious pleomorphic-type are seen. Skin Thickening/Nipple Retraction: None. Complete left breast US: Echotexture: Normal appearance of the glandular tissue. Shadowing: No suspicious foci. Cyst: None. Solid lesions: The hypoechoic well-circumscribed solid lesion at the 9 o'clock position 2 cm from the nipple is again seen. It measures 2.5 x 0.6 x 1.8 cm. This likely represents a fibroadenoma. No other cystic or solid masses are seen in the left breast. Ductal dilation: None. IMPRESSION: 1. No evidence of malignancy is noted. Stable left breast lesion. This likely represents a fibroadenoma. 2. A six-month follow-up left breast ultrasound is recommended to document continued stability of the lesion. The patient will have there normal screening mammogram at that time. 3. The findings were discussed with the patient on the date of the examination. BI-RADS Category 3 - 6 month - Probably Benign Finding: Recommend follow-up imaging in 6 months Breast Density - Category C - The breast are heterogeneously dense, which may obscure small masses. Breast density Category C or D implies that the patient has dense breast tissue. Dense breast tissue can make it harder to find cancer on a mammogram. Dense breast tissue is also associated with an increased risk of breast cancer. This information about the result of the mammogram report was provided to the patient to raise their awareness. Use this report when you speak with the patient about their risks for breast cancer, which includes their family history. At that time, you may recommend additional screening tests (Ultrasound or MRI) as these tests may add significant information. A negative radiographic report should not delay biopsy if a dominant or clinically suspicious mass is present. Up to ten percent of cancers are not identified on mammography. A negative report may reinforce clinical impression. Adenosis and dense breasts may obscure an underlying neoplasm. False positive reports average 6 to 10%. Patient will receive a letter notifying them of these results.
== END 2025-05-02 00:30 ==
LOC: DI 00:10
PROVIDERS: PCP Nurse Practitioner Family; Visit Provider Obstetrics & Gynecology Gynecology
DX: Z12.31 Encounter for screening mammogram for malignant neoplasm of breast (principal); N63.25 Unspecified lump in the left breast, overlapping quadrants
CPT/HCPCS: 76642; 77061; 77065; G0279